=== PATIENT | female | born 1945 | race Caucasian/White ===

== ENCOUNTER 2019-02-26 08:40 | Day surgery (SDC) | payer MEDICARE, BC ==
[~2019-02-26] VITALS: Ht 154.9 cm; Wt 58.7 kg
[2019-02-26] VITALS (22 sets, daily range): BP systolic 152–191; BP diastolic 72–94; PULSE 62–108; RESP 10–20; Ht 154.9 cm; Wt 58.7 kg
[~2019-02-26 08:40] MED LIST: LOSA50TA14 ORAL; LOVA20TA ORAL; METO-335 ORAL
[2019-02-26] MEDS ORDERED: LACTATED RINGER'S 1,000 ML IV SCH (11:00)
[2019-02-26] MEDS ORDERED: FENTAnyl 50 MCG/ML VIAL ONE (11:35)
[2019-02-26] MEDS ORDERED: ROPIVACAINE 0.5 % 30 ML VIAL ONE ×2 (11:36→12:37)
--- NOTE | 2019-02-26 11:41 | PREAC ---
Date/Time of Note Date/Time of Note DATE: 02/26/19 TIME: 11:40 Anesthesia Eval and Record Evaluation Time Pre-Procedure Interview DATE: 02/26/19 TIME: 11:40 Age 74 Sex female NPO: 8 hrs Preoperative diagnosis right achilles tendon tear Planned procedure right ankle repair achilles tendon Past Medical History Past Medical History: Includes Cardio: HTN, Dyslipidemia Musculoskeletal: Osteoarthritis Surgery & Anesthesia Issues No known issue Meds Anticoagulation: No Beta Kristen within 24 hr: Yes Reason Beta Kristen not given: Bradycarida, Hypotension Reported Medications Losartan Potassium* (Losartan Potassium*) 50 Mg Tablet, 1 TAB ORAL DAILY 02/26/19 Lovastatin* (Lovastatin*) 20 Mg Tablet, 1 TAB ORAL QHS 02/26/19 Metoprolol Succinate* (Toprol XL*) 25 Mg Tab.sr.24h, 1 TAB ORAL DAILY 02/26/19 Current Medications Lactated Ringer's 1,000 ml @ 25 mls/hr Q24H IV ; Start 02/26/19 at 11:00 Meds reviewed: Yes Allergies Coded Allergies: amoxicillin (Verified Allergy, Unknown, RASH, 02/26/19) Allergies Reviewed: Yes Labs/Studies Labs Reviewed: Reviewed by anesthesiologist test: N/A Studies: ECG, CXR Pre-procedure Exam Last vitals Vital Signs Date Temp Pulse Resp B/P (MAP) Pulse Ox O2 O2 Flow FiO2 Time Delivery Rate 02/26/19 70 16 171/72 100 Room Air 09:25 (105) 02/26/19 98.0 08:55 Airway: Adequate mouth opening, Adequate thyromental dist Mallampati: Mallampati II Teeth: Normal Lung: Normal Heart: Normal ASA Physical Status ASA physical status: 2 Emergency: None Planned Anesthetic General/MAC: ETT Nerve block: Sciatic (right) Planned Pain Management Single shot nerve block, Parenteral pain med Pre-operative Attestations Prior to commencing anesthesia and surgery, the patient was re-evaluated, there was verification of: *The patient's identity *The results of appropriate recent lab work and preoperative vital signs *The above evaluation not changing prior to induction *Anesthetic plan, risk benefits, alternative and complications discussed with patient/family; questions answered; patient/family understands, accepts and wishes to proceed. NANCY TELLO MD Feb 26, 2019 11:41
[2019-02-26] MEDS ORDERED: POVIDONE IODINE 10% 28.4 GM OINT ONE (12:38)
[2019-02-26] MEDS ORDERED: POLYMYXIN/BACITRACIN 1L IRRIG ONE (12:38)
--- NOTE | 2019-02-26 12:38 | HPN ---
Date/Time of Note Date/Time of Note DATE: 02/26/19 TIME: 12:38 Interval H&P Admission Note Pt. seen H&P reviewed: No system changes IVAN HILL MD Feb 26, 2019 12:38
[2019-02-26] MEDS ORDERED: CEFAZOLIN 1 GM INJ ONE ×2 (13:20→14:39)
[2019-02-26] MEDS ORDERED: ONDANSETRON 4 MG INJ ONE (13:21)
[2019-02-26] MEDS ORDERED: SUCCINYLCHOLINE CHLORIDE 100 MG/5 ML SYG IV ONE (13:21)
[2019-02-26] MEDS ORDERED: FAMOTIDINE 20 MG INJ ONE (13:21)
[2019-02-26] MEDS ORDERED: PROPOFOL 20 ML ONE (13:21)
[2019-02-26] MEDS ORDERED: DEXAMETHASONE 4 MG/ML 5 ML INJ ONE (13:21)
[2019-02-26] MEDS ORDERED: ROCURONIUM 50 MG INJ ONE (13:21)
[2019-02-26] MEDS ORDERED: LIDOCAINE 2% (SDV) 5 ML INJ ONE (13:21)
[2019-02-26] MEDS ORDERED: CA CHLORIDE (GM) 10% 10 ML INJ ONE (13:46)
[2019-02-26] MEDS ORDERED: THROMBIN 5000 UNIT (RECOTHROM) VIAL ONE (13:46)
[2019-02-26] MEDS ORDERED: NEOSTIGMINE 3 MG/3 ML SYRINGE ONE (14:50)
[2019-02-26] MEDS ORDERED: GLYCOPYRROLATE 0.4 MG INJ ONE (14:50)
[2019-02-26] MEDS ORDERED: DIPHENHYDRAMINE 50 MG INJ IV PRN (15:00)
[2019-02-26] MEDS ORDERED: HYDROGEN PEROXIDE 118 ML ONE (15:00)
[2019-02-26] MEDS ORDERED: MEPERIDINE 25 MG INJ IV PRN (15:00)
[2019-02-26] MEDS ORDERED: PROCHLORPERAZINE 10 MG INJ IV PRN (15:00)
[2019-02-26] MEDS ORDERED: LABETALOL HCL 20MG INJ IV PRN (15:00)
[2019-02-26] MEDS ORDERED: FENTAnyl 50 MCG/ML VIAL IV PRN (15:00)
[2019-02-26] MEDS ORDERED: HYDROmorphONE 1 MG/5 ML IV SYRINGE IV PRN ×2 (15:00)
[2019-02-26] MEDS ORDERED: ONDANSETRON 4 MG INJ IV PRN ×2 (15:00→15:30)
[2019-02-26] MEDS ORDERED: OXYCODONE/ACETAMINOPHEN (5/325) TAB PO PRN ×3 (15:00→15:30)
[2019-02-26] MEDS ORDERED: SOD CHLORIDE 0.9% 1,000 ML IV SCH (15:06)
--- NOTE | 2019-02-26 15:17 | PAC ---
Date/Time of Note Date/Time of Note DATE: 02/26/19 TIME: 15:17 Post-Anesthesia Notes Post-Anesthesia Note Last documented vital signs Vital Signs Date Temp Pulse Resp B/P (MAP) Pulse Ox O2 O2 Flow FiO2 Time Delivery Rate 02/26/19 70 16 171/72 100 Room Air 09:25 (105) 02/26/19 98.0 08:55 Activity: WNL Respiratory function: WNL Cardiovascular function: WNL Mental status: Baseline Pain reasonably controlled: Yes Hydration appropriate: Yes Nausea/Vomiting absent: Yes Comments BP: 122/86 HR: 73 RR: 15 T: 98 SaO2: 99 NANCY TELLO MD Feb 26, 2019 15:17
[2019-02-26] MEDS ORDERED: morphine 2 MG INJ IV PRN (15:30)
[2019-02-26] MEDS: hydrALAzine 20 MG INJ IV PRN ×2 (16:01→17:55)
--- NOTE | 2019-02-26 18:09 | OPR ---
DATE OF OPERATION: 02/26/2019 PREOPERATIVE DIAGNOSIS: Complete rupture, right Achilles tendon. POSTOPERATIVE DIAGNOSES: 1. Complete rupture, right Achilles tendon. 2. Intact plantaris tendon. PROCEDURES: 1. Repair of the torn right Achilles tendon. 2. Augmentation of the Achilles tendon with plantaris tendon. 3. Release of deep posterior compartment of the leg. 4. Insertion of PRP into the operative site. 5. Short-leg cast. SURGEON: Ivan Colon MD ALTERNATIVE DISPUTE RESOLUTION MEDIATOR: Alber Morgan DO ANESTHESIA: General with popliteal block. TOURNIQUET TIME: 51 minutes. DESCRIPTION OF PROCEDURE: The patient was taken to the operating room and placed in supine position. Satisfactory popliteal block was given. Satisfactory general anesthesia was administered. A 2 gra ms Ancef were given intravenously. The patient was very carefully rolled in the prone position, secu red with chest roll pillows. All areas were carefully padded. The right leg was prepped and draped in the usual manner. There was an obvious Achilles rupture. We could fill the gap. An incision was made medial to the Achilles rupture, kept it as small as possible. Throughout the procedure, we use d only retraction with sutures on the subcutaneous tissue and nothing else to prevent problems. The peritenon was minimally elevated and then opened. The tendon had a complete tear approximately 6 cm proximal to its insertion. The tendon was quite small and frayed proximally and distally. There was a very small plantaris tendon that was still intact. The wounds were irrigated with antibiotic solu tion. All the hematoma was removed. Special clamp was used to hold the Achilles. We elevated aroun d the Achilles to free it up and get rid of any scar and adhesions proximally and distally. The tend on was small but we felt repairable. A #2 FiberWire was weaved through the tendon with modified Krak ow suture. Once we did this proximally, we had good hold of the tendon and good suture control. The same was done distally. We released the deep compartment of the posterior leg to facilitate paraten on healing and closure. With the foot plantar flexed, Achilles tendon sutures were tied. A 3-0 PDS was used to reinforce across the repair medially and laterally and sutured the plantaris into the rep air. Once this was done, we had excellent repair. Jackson test was now negative. Wounds were irri gated with antibiotic solution. Paratenon was closed with 3-0 undyed Vicryl. We could close about 2 /3, but the rest was not really there and was so fragile. Tourniquet was released. Bleeders were co agulated. Wounds were irrigated with antibiotic solution. Subcutaneous tissue was closed with a few 3-0 undyed Vicryl and then 4-0 black nylon interrupted sutures. PRP was prepared previously by draw ing blood from the patient sterilely and then it spinning down. A 4 mL of PRP was inserted with an 1 8-gauge needle around the Achilles tendon. Platelet-poor material was placed on the gauze pads. A c ompression dressing was then applied after a saphenous nerve block was done with 0.5% ropivacaine. W ith all areas carefully padded, a short leg cast was then applied in gravity, amount of plantarflexio n. At the end of the procedure, the sponge and needle count were correct. The patient tolerated the procedure well and brought to recovery room. RESIDENTIAL PROPERTY CONSULTANT ORTHOPEDIC SURGEON: During the procedure, an special education assistant orthopedic surgeon was used at [facility]. The special education assistant helped with gentle retraction, helped to tie one side of the Achilles tendon w mae Back tied the other side. Without a skilled orthopedic surgeon assisting, this could not have been done and should be compensated appropriately. Dictated By: IVAN SWARTZ/LETY Conf#: [id number] DID#: [id number]
== END 2019-02-26 19:47 | disposition home or self-care (01) ==
LOC: SDS 08:40
PROVIDERS: ATTEND Orthopaedic Surgery
DX: S86.011D Strain of right Achilles tendon, subsequent encounter (principal); X58.XXXD Exposure to other specified factors, subsequent encounter; I10 Essential (primary) hypertension; E78.5 Hyperlipidemia, unspecified
CPT/HCPCS: 27650; 86999; J0360; J0690; J1100; J2175; J2405; J2710; J2795; J3010